=== PATIENT | female | born 2000 | race Two or more races ===

== ENCOUNTER → 2019-06-16 12:02 | Outpatient (CLI) | payer OTHER, SELFPAY ==
[2019-06-16 08:59] VITALS: BMI 34.0
== END ==
PROVIDERS: Family Provider Family Medicine; PCP Family Medicine; Referring Provider Surgery; Visit Provider Surgery
DX: L02.411 Cutaneous abscess of right axilla (principal)
CPT/HCPCS: 87070; 87075; 87205

== ENCOUNTER 2021-09-17 16:17 | Emergency (ER) | payer OTHER, SELFPAY ==
[2021-09-17 16:18] VITALS: BP 115/87; PULSE 94; RESP 16; TEMP 36.4; O2SAT 97; BMI 31.0
--- NOTE | 2021-09-17 17:15 | EDS_ITS ---
HPI History of Present Illness Chief Complaint: Abscess Informant: patient Narrative Narrative: Patient is a 21-year-old female with history of Crohn's disease, hidradenitis suppurativa and solitary kidney presenting with redness, pain and swelling of her left axilla. Patient states she receives most of her care back in [facility]. She is a [employer] student. She has had 3 days of swelling and redness with increased pain. She was prescribed doxycycline but states is a 30-minute walk to get to the pharmacy and it hurt too much to walk that far. She notes she has chronic small area of drainage in the center of her left axilla that drains spontaneously from time to time without not causing trouble at this time. In [address] Joshua but has not followed up since. [facility] Medical History Abscesses of both axillae Crohn's disease Hydradenitis Home Medications amoxicillin 875 mg-potassium clavulanate 125 mg tablet 1 tab PO BID #14 tab 06/16/19 [Rx Last Taken Unknown] cholecalciferol (vitamin D3) 1,250 mcg PO QWEEK 09/17/21 [History Last Taken Unknown] lactobacillus combination no.4 [Probiotic] 3,000 mmu cells PO DAILY 09/17/21 [History Last Taken Unknown] mesalamine [Pentasa] 2,000 mg PO DAILY 09/17/21 [History Last Taken Unknown] omega-3 fatty acids-vitamin E [Fish Oil] 2 cap PO DAILY 09/17/21 [History Last Taken Unknown] Allergy/AdvReac Type Severity Reaction Status Date / Time No Known Allergies Allergy Verified 09/17/21 16:18 Family History Father Diabetes Hypertension CAD (coronary artery disease) Surgical History History of bladder surgery History of right nephrectomy s/p incision and drainage bilateral axilla abscesses (~06/16/19) Social History Smoking Status: Never smoker alcohol intake: never ROS ROS ED Constitutional Constitutional ED: Denies chills or fever(s) Eyes Eyes: Denies change in vision Cardiovascular Cardiovascular: Denies chest pain Respiratory/Chest Respiratory/Chest: Denies dyspnea Gastrointestinal Gastrointestinal: Denies abdominal pain, nausea or vomiting Musculoskeletal Musculoskeletal: Denies arthralgias or myalgias Integumentary Reports abscess and rash Neurologic Neurologic: Denies headache(s), paresthesias or weakness Psychiatric Psychiatric: Denies depression EXAM Physical Exam Const Vital Signs: 09/17/21 16:18 Temperature 97.6 F L Temperature Source Temporal Pulse Rate 94 Respiratory Rate 16 Blood Pressure 115/87 H Blood Pressure Mean 96 Pulse Ox 97 Oxygen Delivery Method Room Air Positive well nourished and well developed General Appearance ED: well developed HEENT Reports moist mucous membranes Negative for trauma Eyes PERRL and EOMs intact bilaterally Neck supple Chest Wall inspection of chest normal Resp normal respiratory effort and clear to auscultation bilaterally Cardio regular rate, regular rhythm and no murmurs Extremity normal to inspection Neuro oriented x3 Sensorium / Orientation: alert Psych mental status grossly normal Skin Skin Narrative: Multiple scars on both axilla consistent with prior ab scesses/history of hydradenitis suppurativa. She has a 1 cm fluctuant, erythematous and very tender slightly irregular area of swelling/pain in her left medial axilla. No active drainage appreciated. There is surrounding erythema but no associated lymphangitic streaking. No induration appreciated. MDM MDM MDM Narrative Medical decision making narrative: Patient evaluated for 3 days of pain and swelling of her left axilla. She has a high history of hydradenitis suppurativa and her presentation is consistent with infected abscess. There is some surrounding erythema and warmth. I&D obtained. 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 She is given a dose in the ER. She is instructed take Tylenol as needed for pain. She is in counseled that she can continue to do warm compresses and put mupirocin ointment on the abscess as well. Is given follow-up with dermatology as well as surgery as needed. Patient discharged in stable and improved condition. Procedures Other Procedures Procedure(s): Incision and drainage Let applied to the abscess. 1% lidocaine with epinephrine injected subcutaneously. #11 blade used to make a stab incision. Patient tolerated this well. There is immediate expression of purulent material. Incision slightly extended to make a 1 cm opening. Hemostat used to open up any potential loculations. Abscess expressed until there was only a bloody discharge. Patient tolerated procedure well no immediate complications. Bacitracin and dressing applied. Left open to heal by secondary intent. Discharge Plan Triage Chief Complaint: Abscess ED Provider: Su Rasmussen Dx/Rx/DC Orders Clinical Impression: Abscess of axilla, left Instructions: ED Abscess Incision And Drainage Prescriptions: No Action amoxicillin-pot clavulanate [Augmentin] 875-125 mg tablet 1 tab PO BID Qty: 14 RF: 0 Pentasa 250 mg Capsule, Extended Release 2,000 mg PO DAILY RF: 0 Fish Oil 1,000 mg Capsule 2 cap PO DAILY RF: 0 cholecalciferol (vitamin D3) 1,250 mcg (50,000 unit) Wafer 1,250 mcg PO QWEEK RF: 0 Probiotic 3 billion cell Capsule 3,000 mmu cells PO DAILY RF: 0 Primary Care Provider: Haile Wilkerson Referrals: Haile Wilkerson MD [Primary Care Provider] - Jaspal Newby MD [STAFF PHYSICIAN] - As Needed Ad Senior MD [STAFF PHYSICIAN] - As Needed Activity Restrictions/Additional Instructions: Take Tylenol as needed for pain. Use the Mupin Derm ointment. Do warm compresses. Take the antibiotic already prescribed to you. It is twice a day. Disposition Disposition: Home, Self Care Discharge Date/Time: 09/17/21 20:09
[2021-09-17] MEDS: Lidocaine/Epi/Tetracaine 50 ML 1 APPLIC TOPICAL (17:19)
[2021-09-17] MEDS: Acetaminophen 325 MG Tablet 650 MG PO (17:24)
[2021-09-17] MEDS: Doxycycline 100 MG CAPSULE PO (17:24)
[2021-09-17] MEDS: Lidocaine 1% (20 ml mdv) 20 ML Vial INFILT (20:08)
== END 2021-09-17 20:09 | disposition home or self-care (01) ==
PROVIDERS: Emergency Provider Emergency Medicine; PCP Family Medicine; Visit Provider Emergency Medicine
DX: L02.412 Cutaneous abscess of left axilla (principal); K50.90 Crohn's disease, unspecified, without complications; Z90.5 Acquired absence of kidney; Z79.899 Other long term (current) drug therapy
CPT/HCPCS: 10060; 99281; 99283

== ENCOUNTER 2021-09-25 10:38 | Outpatient (CLI) | payer OTHER, SELFPAY | END 2021-09-25 23:59 | disposition home or self-care (01) | LOC: LABSPEC 10:39 | PROVIDERS: PCP Family Medicine; Referring Provider Surgery; Visit Provider Surgery | DX: L02.419 Cutaneous abscess of limb, unspecified (principal) | CPT/HCPCS: 87070; 87075; 87205 ==